=== PATIENT | female | born 1940 | race Caucasian/White ===

== ENCOUNTER 2021-07-07 18:32 | Inpatient (IN) ==
[2021-07-07 19:05] LABS: Basophils % 0.4 % (0.0-0.8); Eosinophils # 0.2 10*3/uL (0.0-0.87); Eosinophils % 2.4 % (0.00-10.9); Hematocrit 35.8 VOL% (35.7-47.0); Hemoglobin 11.2 GM/DL (12.0-16.0); Immature Granulocytes % 0.3 %; Immature Granulocytes Absolute 0.02 #; Lymphocytes # 2.6 10*3/uL (1.4-4.0); Lymphocytes % 34.9 % (21.3-54.2); Mean Corpuscular HGB Conc 31.3 GM/DL (32-36); Mean Corpuscular Volume 89.5 FL (87-102); Mean Platelet Volume 10.5 FL (9.6-12.0); Monocytes % 7.4 % (1.7-12.7); Neutrophils % 54.6 % (38.7-73.9); Platelet Count 246 T/CUMM (130-400); Red Cell Distribution Width 14.7 % (9.3-17.3); White Blood Count 7.5 T/CUMM (4-12)
[2021-07-07 19:34] LABS: Alanine Aminotransferase 55 U/L (13-56); Albumin 3.6 G/DL (3.4-5.0); Alkaline Phosphatase 89 U/L (45-117); Aspartate Amino Transferase 66 U/L (0-37); Bilirubin,Total < 0.39 MG/DL (0.20-1.00); Blood Urea Nitrogen 26 MG/DL (7-18); Calcium 9.3 MG/DL (8.5-10.1); Carbon Dioxide 26 MMOL/L (21-32); Estimated Glom Filtration Rate 55 ML/MIN; Glucose 171 MG/DL (74-106); Osmolality,Calculated 276.2 MOS/KG (273-304); Potassium 4.8 MMOL/L (3.5-5.1); Sodium 134 MMOL/L (136-145); Total Protein 7.7 G/DL (6.4-8.2)
[2021-07-07] MEDS ORDERED: NITROGLYCERIN SL 0.4 MG TABLET SL STA (19:46)
[2021-07-07] MEDS ORDERED: ONDANSETRON 4 MG/2 ML VIAL IV PRN (20:26)
[2021-07-07] MEDS ORDERED: GLUCAGON 1 MG VIAL IM PRN (20:26)
[2021-07-07] MEDS ORDERED: hydrALAZINE 20 MG/1 ML VIAL IV PRN (20:26)
[2021-07-07] MEDS ORDERED: DOCUSATE SODIUM 100 MG CAPSULE PO PRN (20:26)
[2021-07-07] MEDS ORDERED: traZODone 50 MG TABLET PO PRN (20:26)
[2021-07-07] MEDS ORDERED: ACETAMINOPHEN 325 MG TABLET PO PRN (20:26)
[2021-07-07] MEDS ORDERED: NITROGLYCERIN SL 0.4 MG TABLET SL PRN (20:36)
[2021-07-07] MEDS ORDERED: DEXTROSE 10% 250 ML BAG IV PRN (20:42)
[2021-07-07] MEDS ORDERED: amLODIPine 5 MG TABLET PO SCH (21:00)
[2021-07-07] MEDS: carvediloL 6.25 MG TABLET PO SCH (21:23)
[2021-07-07] MEDS: INSULIN REGULAR 100 UNIT/ML SUBCUT SCH (21:24)
[2021-07-07] MEDS: ENOXAPARIN 40 MG/0.4 ML SYRINGE SUBCUT SCH (21:25)
[2021-07-08 02:18] LABS: Basophils % 0.4 % (0.0-0.8); Eosinophils # 0.2 10*3/uL (0.0-0.87); Eosinophils % 2.3 % (0.00-10.9); Hematocrit 33.1 VOL% (35.7-47.0); Hemoglobin 10.5 GM/DL (12.0-16.0); Immature Granulocytes % 0.3 %; Immature Granulocytes Absolute 0.02 #; Lymphocytes # 3.2 10*3/uL (1.4-4.0); Lymphocytes % 39.6 % (21.3-54.2); Mean Corpuscular HGB Conc 31.7 GM/DL (32-36); Mean Corpuscular Volume 90.9 FL (87-102); Mean Platelet Volume 11.1 FL (9.6-12.0); Monocytes % 8.5 % (1.7-12.7); Neutrophils % 48.9 % (38.7-73.9); Platelet Count 245 T/CUMM (130-400); Red Blood Count 3.64 MC/CUMM (3.8-5.5); Red Cell Distribution Width 14.8 % (9.3-17.3)
[2021-07-08] MEDS ORDERED: ENOXAPARIN 40 MG/0.4 ML SYRINGE SUBCUT ONE (02:48)
[2021-07-08 02:49] LABS: Calcium 8.6 MG/DL (8.5-10.1); Osmolality,Calculated 279.4 MOS/KG (273-304); Potassium 4.3 MMOL/L (3.5-5.1); Risk Ratio 3.08; Thyroid Stimulating Hormone 3.18 uIU/ml (0.358-3.74); VLDL Cholesterol 85.6 MG/DL
[2021-07-08] MEDS: carvediloL 6.25 MG TABLET PO SCH ×2 (09:56→21:46)
[2021-07-08] MEDS: LOSARTAN 25 MG TABLET PO SCH (09:56)
[2021-07-08] MEDS: PANTOPRAZOLE 40 MG TABLET PO SCH (09:57)
[2021-07-08] MEDS: ASPIRIN 325 MG TABLET PO SCH (09:57)
[2021-07-08] MEDS: amLODIPine 2.5 MG TABLET PO SCH ×2 (09:57→21:46)
[2021-07-08] MEDS: INSULIN REGULAR 100 UNIT/ML SUBCUT SCH ×4 (10:01→21:47)
[2021-07-08] MEDS: ENOXAPARIN 40 MG/0.4 ML SYRINGE SUBCUT SCH (21:46)
[2021-07-08] MEDS: ATORVASTATIN 10 MG TABLET PO SCH (21:46)
[2021-07-09 09:18] LABS: Basophils % 0.4 % (0.0-0.8); Eosinophils # 0.1 10*3/uL (0.0-0.87); Eosinophils % 1.9 % (0.00-10.9); Hematocrit 34.6 VOL% (35.7-47.0); Hemoglobin 10.7 GM/DL (12.0-16.0); Immature Granulocytes % 0.4 %; Immature Granulocytes Absolute 0.02 #; Lymphocytes # 1.9 10*3/uL (1.4-4.0); Lymphocytes % 35.7 % (21.3-54.2); Mean Corpuscular HGB Conc 30.9 GM/DL (32-36); Mean Corpuscular Volume 89.9 FL (87-102); Mean Platelet Volume 9.9 FL (9.6-12.0); Monocytes % 8.5 % (1.7-12.7); Neutrophils % 53.1 % (38.7-73.9); Platelet Count 195 T/CUMM (130-400); Red Blood Count 3.85 MC/CUMM (3.8-5.5); Red Cell Distribution Width 14.7 % (9.3-17.3); White Blood Count 5.3 T/CUMM (4-12)
[2021-07-09] MEDS: amLODIPine 2.5 MG TABLET PO SCH ×2 (09:29→21:52)
[2021-07-09] MEDS: carvediloL 6.25 MG TABLET PO SCH ×2 (09:29→21:52)
[2021-07-09] MEDS: LOSARTAN 25 MG TABLET PO SCH (09:29)
[2021-07-09] MEDS: PANTOPRAZOLE 40 MG TABLET PO SCH (09:29)
[2021-07-09] MEDS: INSULIN REGULAR 100 UNIT/ML SUBCUT SCH ×4 (09:30→21:51)
[2021-07-09] MEDS: ASPIRIN 325 MG TABLET PO SCH (09:30)
[2021-07-09 10:12] LABS: Bilirubin,Total 0.4 MG/DL (0.20-1.00); Calcium 8.7 MG/DL (8.5-10.1); Osmolality,Calculated 286.2 MOS/KG (273-304); Potassium 4.9 MMOL/L (3.5-5.1); Total Protein 6.4 G/DL (6.4-8.2)
[2021-07-09 11:00] LABS: High Sensitive Troponin I* 1204.6 ng/L (0-54)
[2021-07-09] MEDS: ENOXAPARIN 40 MG/0.4 ML SYRINGE SUBCUT SCH (21:51)
[2021-07-09] MEDS: ATORVASTATIN 10 MG TABLET PO SCH (21:52)
[2021-07-10 05:07] LABS: Basophils % 0.5 % (0.0-0.8); Eosinophils # 0.1 10*3/uL (0.0-0.87); Eosinophils % 2.2 % (0.00-10.9); Hemoglobin 10.3 GM/DL (12.0-16.0); Immature Granulocytes % 0.2 %; Immature Granulocytes Absolute 0.01 #; Lymphocytes # 2.3 10*3/uL (1.4-4.0); Mean Corpuscular HGB Conc 31.2 GM/DL (32-36); Mean Corpuscular Volume 88.9 FL (87-102); Mean Platelet Volume 10.9 FL (9.6-12.0); Monocytes % 8.5 % (1.7-12.7); Neutrophils % 50.6 % (38.7-73.9); Platelet Count 212 T/CUMM (130-400); Red Blood Count 3.71 MC/CUMM (3.8-5.5); Red Cell Distribution Width 14.5 % (9.3-17.3)
[2021-07-10 05:23] LABS: Albumin 2.8 G/DL (3.4-5.0); Bilirubin,Total 0.5 MG/DL (0.20-1.00); Calcium 8.7 MG/DL (8.5-10.1); Osmolality,Calculated 281.1 MOS/KG (273-304); Potassium 4.4 MMOL/L (3.5-5.1); Total Protein 6.7 G/DL (6.4-8.2)
[2021-07-10] MEDS: carvediloL 6.25 MG TABLET PO SCH ×2 (08:55→20:58)
[2021-07-10] MEDS: amLODIPine 2.5 MG TABLET PO SCH ×2 (08:56→20:58)
[2021-07-10] MEDS: INSULIN REGULAR 100 UNIT/ML SUBCUT SCH ×4 (08:56→20:58)
[2021-07-10] MEDS: LOSARTAN 25 MG TABLET PO SCH (08:56)
[2021-07-10] MEDS: ASPIRIN 325 MG TABLET PO SCH (08:56)
[2021-07-10] MEDS: CALCIUM (CARBONATE)/VITAMIN D 600 MG-400 UNIT TABLET PO SCH (09:05)
[2021-07-10] MEDS: OMEGA 3 ACID ETHYL ESTERS 1 GM CAPSULE PO SCH (09:05)
[2021-07-10] MEDS: PANTOPRAZOLE 40 MG TABLET PO SCH (09:05)
[2021-07-10] MEDS: COENZYME Q10 100 MG CAPSULE PO SCH (09:05)
[2021-07-10] MEDS ORDERED: MAGNESIUM SULF RIDER 2 GM/50 ML PREMIX IV PRN (10:30)
[2021-07-10] MEDS ORDERED: POTASSIUM CHLORIDE RIDER 10 MEQ/100 ML PREMIX IV PRN (10:30)
[2021-07-10] MEDS: SODIUM CHLORIDE 0.45% 1,000 ML IV SCH ×2 (10:51→19:30)
[2021-07-10] MEDS ORDERED: DIAZEPAM 5 MG TABLET PO ONE (11:00)
[2021-07-10] MEDS ORDERED: diphenhydrAMINE CAP 25 MG CAPSULE PO ONE (11:00)
[2021-07-10] MEDS ORDERED: HEPARIN/NACL 0.9% 2 UNITS/ML 2,000 UNIT/1,000 ML BAG IV ONE (12:18)
[2021-07-10] MEDS ORDERED: NITROGLYCERIN DRIP 50 MG/250 ML BOTTLE IV ONE (12:49)
[2021-07-10] MEDS ORDERED: MIDAZOLAM 2 MG/2 ML VIAL ONE (12:49)
[2021-07-10] MEDS ORDERED: HYDROmorphone 1 MG/1 ML SYRINGE ONE (12:49)
[2021-07-10] MEDS ORDERED: VERAPAMIL 5 MG/2 ML VIAL ONE (12:49)
[2021-07-10] MEDS ORDERED: ENOXAPARIN 30 MG/0.3 ML SYRINGE ONE (13:00)
[2021-07-10] MEDS ORDERED: TIROFIBAN 5,000 MCG/100 ML PREMIX IV ONE (13:14)
[2021-07-10] MEDS ORDERED: TICAGRELOR 90 MG TABLET ONE (13:38)
[2021-07-10] MEDS: TICAGRELOR 90 MG TABLET PO SCH (20:57)
[2021-07-10] MEDS: ATORVASTATIN 10 MG TABLET PO SCH (20:57)
[2021-07-10] MEDS: ENOXAPARIN 40 MG/0.4 ML SYRINGE SUBCUT SCH (20:58)
[2021-07-11] MEDS: SODIUM CHLORIDE 0.45% 1,000 ML IV SCH ×2 (02:34→11:52)
[2021-07-11 05:26] LABS: Basophils % 0.3 % (0.0-0.8); Eosinophils # 0.1 10*3/uL (0.0-0.87); Eosinophils % 1.6 % (0.00-10.9); Hematocrit 33.7 VOL% (35.7-47.0); Hemoglobin 10.6 GM/DL (12.0-16.0); Immature Granulocytes % 0.3 %; Immature Granulocytes Absolute 0.02 #; Lymphocytes # 1.7 10*3/uL (1.4-4.0); Lymphocytes % 27.5 % (21.3-54.2); Mean Corpuscular HGB Conc 31.5 GM/DL (32-36); Mean Corpuscular Volume 88.5 FL (87-102); Mean Platelet Volume 10.4 FL (9.6-12.0); Monocytes % 9.2 % (1.7-12.7); Neutrophils % 61.1 % (38.7-73.9); Platelet Count 214 T/CUMM (130-400); Red Blood Count 3.81 MC/CUMM (3.8-5.5); Red Cell Distribution Width 14.6 % (9.3-17.3); White Blood Count 6.3 T/CUMM (4-12)
[2021-07-11 05:42] LABS: Albumin 3.1 G/DL (3.4-5.0); Bilirubin,Total 0.5 MG/DL (0.20-1.00); Calcium 9.2 MG/DL (8.5-10.1); Osmolality,Calculated 277.2 MOS/KG (273-304); Potassium 4.9 MMOL/L (3.5-5.1); Total Protein 7.2 G/DL (6.4-8.2)
[2021-07-11] MEDS: INSULIN REGULAR 100 UNIT/ML SUBCUT SCH ×2 (08:53→11:51)
[2021-07-11] MEDS: CALCIUM (CARBONATE)/VITAMIN D 600 MG-400 UNIT TABLET PO SCH (08:53)
[2021-07-11] MEDS: TICAGRELOR 90 MG TABLET PO SCH (08:53)
[2021-07-11] MEDS: COENZYME Q10 100 MG CAPSULE PO SCH (08:53)
[2021-07-11] MEDS: OMEGA 3 ACID ETHYL ESTERS 1 GM CAPSULE PO SCH (08:54)
[2021-07-11] MEDS: amLODIPine 2.5 MG TABLET PO SCH (08:54)
[2021-07-11] MEDS: PANTOPRAZOLE 40 MG TABLET PO SCH (08:54)
[2021-07-11] MEDS: carvediloL 6.25 MG TABLET PO SCH (08:54)
[2021-07-11] MEDS: LOSARTAN 25 MG TABLET PO SCH (08:54)
[2021-07-11] MEDS ORDERED: ASPIRIN EC 81 MG TABLET PO SCH (09:00)
[2021-07-11 12:42] VITALS: BP 139/77
[2021-07-11] MEDS ORDERED: amLODIPine 5 MG TABLET PO SCH (21:00)
[2021-07-11] MEDS ORDERED: ATORVASTATIN 40 MG TABLET PO SCH (21:00)
== END 2021-07-11 12:44 | disposition home or self-care (01) | DRG 247 ==
LOC: N.ED 18:32 → N.EDINP 18:32 → SUATTDRO 20:19 → N.TELEN 21:32
PROVIDERS: ADMIT Internal Medicine; ATTEND Internal Medicine

== ENCOUNTER 2021-07-30 00:25 | Observation (INO) ==
[2021-07-30] MEDS ORDERED: ASPIRIN 325 MG TABLET PO STA (01:11)
[2021-07-30] MEDS ORDERED: MORPHINE 2 MG/1 ML SYRINGE IV STA (01:11)
[2021-07-30] MEDS ORDERED: NITROGLYCERIN SL 0.4 MG TABLET SL PRN (01:11)
[2021-07-30 01:16] LABS: Basophils % 0.3 % (0.0-0.8); Eosinophils # 0.1 10*3/uL (0.0-0.87); Hematocrit 33.6 VOL% (35.7-47.0); Hemoglobin 10.7 GM/DL (12.0-16.0); Immature Granulocytes % 0.3 %; Immature Granulocytes Absolute 0.02 #; Lymphocytes # 2.7 10*3/uL (1.4-4.0); Mean Corpuscular HGB Conc 31.8 GM/DL (32-36); Mean Corpuscular Volume 88.2 FL (87-102); Mean Platelet Volume 10.1 FL (9.6-12.0); Monocytes # 0.7 10*3/uL (0.11-0.8); Monocytes % 9.5 % (1.7-12.7); Neutrophils % 49.9 % (38.7-73.9); Platelet Count 272 T/CUMM (130-400); Red Blood Count 3.81 MC/CUMM (3.8-5.5); Red Cell Distribution Width 14.3 % (9.3-17.3); White Blood Count 7.1 T/CUMM (4-12)
[2021-07-30] MEDS ORDERED: ONDANSETRON 4 MG/2 ML VIAL ONE (01:22)
[2021-07-30] MEDS ORDERED: ONDANSETRON 4 MG/2 ML VIAL IV STA (01:27)
[2021-07-30 01:41] LABS: Albumin 3.7 G/DL (3.4-5.0); Bilirubin,Total 0.4 MG/DL (0.20-1.00); Calcium 9.3 MG/DL (8.5-10.1); Osmolality,Calculated 267.7 MOS/KG (273-304); Potassium 4.4 MMOL/L (3.5-5.1); Total Protein 7.3 G/DL (6.4-8.2)
[2021-07-30] MEDS ORDERED: ACETAMINOPHEN 325 MG TABLET PO PRN (02:27)
[2021-07-30] MEDS ORDERED: MORPHINE 2 MG/1 ML SYRINGE IV PRN (02:27)
[2021-07-30] MEDS ORDERED: GLUCAGON 1 MG VIAL IM PRN (02:27)
[2021-07-30] MEDS ORDERED: hydrALAZINE 20 MG/1 ML VIAL IV PRN (02:27)
[2021-07-30] MEDS ORDERED: ONDANSETRON 4 MG/2 ML VIAL IV PRN (02:27)
[2021-07-30] MEDS ORDERED: SODIUM CHLORIDE 0.9% 1,000 ML IV SCH (02:30)
[2021-07-30] MEDS ORDERED: DEXTROSE 10% 250 ML BAG IV PRN (02:38)
[2021-07-30 05:45] LABS: Calcium 9.3 MG/DL (8.5-10.1); Osmolality,Calculated 266.7 MOS/KG (273-304); Potassium 4.7 MMOL/L (3.5-5.1)
[2021-07-30] MEDS ORDERED: INSULIN LISPRO 100 UNIT/ML SUBCUT SCH (07:30)
[2021-07-30 08:06] VITALS: BP 121/82
[2021-07-30] MEDS ORDERED: PANTOPRAZOLE 40 MG TABLET PO SCH (09:00)
[2021-07-30] MEDS ORDERED: TICAGRELOR 90 MG TABLET PO SCH (09:00)
[2021-07-30] MEDS ORDERED: ASPIRIN EC 81 MG TABLET PO SCH (09:00)
[2021-07-30] MEDS ORDERED: MIRTAZAPINE 15 MG TABLET PO SCH (21:00)
[2021-07-30] MEDS ORDERED: ATORVASTATIN 40 MG TABLET PO SCH (21:00)
[2021-07-30] MEDS ORDERED: carvediloL 6.25 MG TABLET PO SCH (21:00)
[2021-07-30] MEDS ORDERED: LOSARTAN 25 MG TABLET PO SCH (21:00)
[2021-07-30] MEDS ORDERED: amLODIPine 5 MG TABLET PO SCH (21:00)
[2021-07-31] MEDS ORDERED: LOSARTAN 25 MG TABLET PO SCH (09:00)
== END 2021-07-30 11:22 | disposition home or self-care (01) ==
LOC: N.EDINP 00:25 → N.ED 00:25 → N.EDINP 03:50 → N.TELES 04:17
PROVIDERS: ADMIT Internal Medicine; ATTEND Internal Medicine

== ENCOUNTER 2022-05-17 19:55 | Observation (INO) ==
[2022-05-17 20:33] LABS: Basophils % 0.4 % (0.0-0.8); Eosinophils # 0.2 10*3/uL (0.0-0.87); Eosinophils % 2.1 % (0.00-10.9); Hematocrit 32.9 VOL% (35.7-47.0); Hemoglobin 10.3 GM/DL (12.0-16.0); Immature Granulocytes % 0.6 %; Immature Granulocytes Absolute 0.04 #; Lymphocytes # 1.8 10*3/uL (1.4-4.0); Lymphocytes % 25.8 % (21.3-54.2); Mean Corpuscular HGB Conc 31.3 GM/DL (32-36); Mean Corpuscular Volume 83.1 FL (87-102); Mean Platelet Volume 10.4 FL (9.6-12.0); Monocytes # 0.6 10*3/uL (0.11-0.8); Monocytes % 8.4 % (1.7-12.7); Neutrophils % 62.7 % (38.7-73.9); Platelet Count 231 T/CUMM (130-400); Red Blood Count 3.96 MC/CUMM (3.8-5.5); Red Cell Distribution Width 15.6 % (9.3-17.3); White Blood Count 7.12 T/CUMM (4-12)
[2022-05-17 20:46] LABS: INR 0.9; PT Patient Result 10.3 SECS (10.1-12.1); Partial Thromboplastin Time 26.1 SECS (23.7-32.9)
[2022-05-17 20:48] LABS: Albumin 3.7 G/DL (3.4-5.0); Bilirubin,Total 0.4 MG/DL (0.20-1.00); Osmolality,Calculated 273.4 MOS/KG (273-304); Potassium 4.5 MMOL/L (3.5-5.1); Total Protein 7.1 G/DL (6.4-8.2)
[2022-05-17] MEDS ORDERED: ONDANSETRON 4 MG/2 ML VIAL IV STA (20:58)
[2022-05-17] MEDS ORDERED: MORPHINE 2 MG/1 ML SYRINGE IV STA (20:58)
[2022-05-17] MEDS ORDERED: ASPIRIN 325 MG TABLET PO STA (20:58)
[2022-05-17] MEDS ORDERED: NITROGLYCERIN 2% OINT 1 INCH/GM PACK TOP STA (20:58)
[2022-05-17] MEDS ORDERED: ENOXAPARIN 100 MG/ML SYRINGE SUBCUT STA (21:41)
[2022-05-17] MEDS ORDERED: ACETAMINOPHEN 325 MG TABLET PO PRN (22:38)
[2022-05-17] MEDS ORDERED: NITROGLYCERIN SL 0.4 MG TABLET SL PRN (22:38)
[2022-05-17] MEDS ORDERED: MORPHINE 2 MG/1 ML SYRINGE IV PRN (22:38)
[2022-05-17] MEDS ORDERED: ONDANSETRON 4 MG/2 ML VIAL IV PRN (22:38)
[2022-05-17] MEDS ORDERED: ALUM/MAG/SIMETH/LIDO VISC 1:1 30 ML BOTTLE PO STA (22:48)
[2022-05-18 03:20] LABS: Calcium 8.8 MG/DL (8.5-10.1); Potassium 4.7 MMOL/L (3.5-5.1)
[2022-05-18 03:28] LABS: Risk Ratio 2.46; Thyroid Stimulating Hormone 1.39 uIU/ml (0.358-3.74); VLDL Cholesterol 22.6 MG/DL
[2022-05-18 06:48] LABS: Basophils % 0.5 % (0.0-0.8); Eosinophils # 0.2 10*3/uL (0.0-0.87); Eosinophils % 3.5 % (0.00-10.9); Immature Granulocytes % 0.5 %; Immature Granulocytes Absolute 0.03 #; Lymphocytes # 2.6 10*3/uL (1.4-4.0); Lymphocytes % 41.3 % (21.3-54.2); Mean Corpuscular HGB Conc 31.3 GM/DL (32-36); Mean Corpuscular Volume 85.1 FL (87-102); Mean Platelet Volume 10.9 FL (9.6-12.0); Monocytes # 0.6 10*3/uL (0.11-0.8); Monocytes % 9.1 % (1.7-12.7); Neutrophils % 45.1 % (38.7-73.9); Platelet Count 255 T/CUMM (130-400); Red Blood Count 3.76 MC/CUMM (3.8-5.5); Red Cell Distribution Width 15.6 % (9.3-17.3); White Blood Count 6.35 T/CUMM (4-12)
[2022-05-18] MEDS ORDERED: ASPIRIN EC 325 MG TABLET PO SCH (09:00)
[2022-05-18] MEDS ORDERED: sitaGLIPtin 100 MG TABLET PO SCH (09:00)
[2022-05-18] MEDS ORDERED: MAGNESIUM CHLORIDE 64 MG TABLET PO SCH (09:00)
[2022-05-18] MEDS ORDERED: TICAGRELOR 90 MG TABLET PO SCH (09:00)
[2022-05-18] MEDS ORDERED: LOSARTAN 25 MG TABLET PO SCH (09:00)
[2022-05-18] MEDS ORDERED: SOUR CHERRY EXTRACT 1000 MG PO SCH (09:00)
[2022-05-18] MEDS ORDERED: PANTOPRAZOLE 40 MG TABLET PO SCH (09:00)
[2022-05-18] MEDS ORDERED: OMEGA 3 ACID ETHYL ESTERS 1 GM CAPSULE PO SCH (09:00)
[2022-05-18] MEDS ORDERED: CALCIUM (CARBONATE)/VITAMIN D 600 MG-400 UNIT TABLET PO SCH (09:00)
[2022-05-18] MEDS ORDERED: NITROGLYCERIN SL 0.4 MG TABLET SL PRN (09:45)
[2022-05-18] MEDS ORDERED: carvediloL 6.25 MG TABLET PO SCH (10:00)
[2022-05-18] MEDS: ISOSORBIDE MONONITRATE 30 MG TABLET PO SCH ×2 (10:07→10:13)
[2022-05-18 13:18] VITALS: BP 129/76
[2022-05-18] MEDS ORDERED: INSULIN GLARGINE 100 UNIT/ML SUBCUT SCH (21:00)
[2022-05-18] MEDS ORDERED: COENZYME Q10 100 MG CAPSULE PO SCH (21:00)
[2022-05-18] MEDS ORDERED: ATORVASTATIN 40 MG TABLET PO SCH (21:00)
[2022-05-19] MEDS ORDERED: ASPIRIN EC 81 MG TABLET PO SCH (09:00)
[2022-05-19] MEDS ORDERED: LOSARTAN 25 MG TABLET PO SCH (09:00)
[2022-05-19] MEDS ORDERED: PANTOPRAZOLE 40 MG TABLET PO SCH (09:00)
== END 2022-05-18 14:23 | disposition home or self-care (01) ==
LOC: N.ED 19:55 → N.EDINP 19:55 → N.2W 05-18 00:36
PROVIDERS: ADMIT Internal Medicine; ATTEND Internal Medicine